=== PATIENT | female | born 1975 | race Caucasian/White ===

== ENCOUNTER 2020-05-24 07:52 | Day surgery (SDC) | payer OTHER ==
[2020-05-24 08:14] LABS: Specific Gravity 1.025 (1.005-1.030)
[2020-05-24] MEDS ORDERED: Ringers Lactate 1,000 ML IV ONE ×4 (08:42→16:26)
[2020-05-24] MEDS ORDERED: LIDOCAINE 1% W/EPI 1:100,000 10 ML VIAL ONE (08:42)
[2020-05-24] MEDS ORDERED: NS 0.9% VIAL 40 ML ONE (08:42)
[2020-05-24] MEDS ORDERED: Mastisol Adhesive Liq ONE (08:42)
[2020-05-24] MEDS ORDERED: GENTAMICIN SULF 80 MG/2ML INJ ONE (08:42)
[2020-05-24] MEDS ORDERED: CEFAZOLIN SODIUM 1 GM/VIAL ONE (08:42)
[2020-05-24] MEDS ORDERED: BACITRACIN 50000 UNIT VIAL ONE (08:43)
[2020-05-24] MEDS ORDERED: CEFAZOLIN/SWI 1gm 1 GM/10 ML SYR ONE (09:34)
[2020-05-24] MEDS ORDERED: SCOPOLAMINE HYDROBROMIDE PATCH TD ONE (09:48)
[2020-05-24] MEDS ORDERED: LANO/MINERAL OIL/PETRO 3.5 GM ONE (10:50)
[2020-05-24] MEDS ORDERED: VECURONIUM 10 MG/VIAL IV ONE (10:51)
[2020-05-24] MEDS ORDERED: propofoL 200 MG/20 ML VIAL IV ONE (10:54)
[2020-05-24] MEDS ORDERED: dexAMETHasone 10 MG/ML VIAL ONE (10:54)
[2020-05-24] MEDS ORDERED: MIDAZOLAM HCL 2 MG/2 ML INJ ONE (10:54)
[2020-05-24] MEDS ORDERED: ONDANSETRON 4 MG/2 ML VIAL ONE ×2 (10:55→15:02)
[2020-05-24] MEDS ORDERED: LIDOCAINE 1% MPF 5 ML VIAL ONE (10:55)
[2020-05-24] MEDS ORDERED: FENTANYL CITR 250 MCG/5 ML ONE (10:55)
[2020-05-24] MEDS ORDERED: NS 0.9% VIAL 10 ML ONE (10:55)
[2020-05-24] MEDS ORDERED: KETOROLAC 30 MG/ML INJ ONE ×2 (11:42→15:02)
[2020-05-24] MEDS ORDERED: GLYCOPYRROLATE 0.2 MG/ML SYR ONE (15:01)
[2020-05-24] MEDS ORDERED: NEOSTIGMINE 1 MG/ML -5 ML ONE (15:02)
--- NOTE | 2020-05-24 16:23 | OP ---
Surgeon: Mark Duenas MD Preoperative Diagnosis: Breast enlargement and descent. Postoperative Diagnosis: Breast enlargement and descent Procedure: Lift. Anesthesia: General. Procedure In Detail: After satisfactory induction of general anesthesia, the chest was prepped with DuraPrep and dry sterile drapes applied in the usual manner. A 45 mm template was used to outline th e right and left areolas. Then, transverse curvilinear incision was made. Intervening skin was de-e pithelized with dermabrader and EpiCut. The transverse incision was made in the right breast. The f laps were elevated towards the sternum, clavicle, and anterior axillary line. Then, an inferior inci marya was made and then the excess tissue was formed into a cone with 2-0 PDS suture. This was done a fter lateral and inferior excess breast tissue was excised. The straps were elevated at 12 o'clock, 1:30, and 3 o'clock positions. The straps were then woven in and out of the pectoralis major muscle back to the base of the cone, tied themselves with 2-0 PDS suture. This was done for the 12 o'clock and 1:30 strap. The 3 o'clock strap was sewn over the sternum at 3 o'clock position with 2-0 Ethibon d. Wounds were carefully stapled shut. The left side was done in mirror-image manner and returned t o the right side. We irrigated the wound with antibiotic solution. Brought a EDUIN 10 out the axilla, sewn in place with 2-0 silk. Dog was excised medially and laterally and then the wound was closed in layers using 3-0 Vicryl subcu, 3-0 PDS running subcuticular from lateral to medial and medial to lat eral, tied in the vertical meridian. The left side was done in identical manner. The patient was sa t up. Site for new nipple-areolar complex was marked out. A 45 template was used. The tissue was c ored out, then nipples delivered, sewn with interrupted 4-0 PDS followed by 4-0 PDS running subcuticu lar. Dressings consisted of tincture of benzoin, Steri-Strips followed by Esmarch, fluffs, and Hiram w rap. The patient tolerated the procedure well and returned to the recovery room. Amount removed fro m the right breast was 70 and the left breast was 102. GH/JASPAL Voice ID: [id number] Report ID: [id number]
[2020-05-24] MEDS ORDERED: CODEINE 30MG/APAP 300MG TAB ONE (17:36)
[2020-05-24 17:45] VITALS: BP 93/39; TEMP 98.3; O2SAT 100
== END 2020-05-24 18:35 | disposition home or self-care (01) ==
LOC: OR 07:52
PROVIDERS: ATTEND Specialist
PROC: 0HSV0ZZ Reposition Bilateral Breast, Open Approach (ICD-10-PCS; principal; 2020-05-24 10:00)
DX: N64.81 Ptosis of breast (principal); Z20.822 Contact with and (suspected) exposure to COVID-19
CPT/HCPCS: 81025; 88305; 19316; J2704; J1580; J2250; J3010; J1100; J2710; J0690 ×2; J7120 ×4; J2405 ×2